=== PATIENT | female | born 1970 | race Caucasian/White ===

== ENCOUNTER 2024-08-15 00:09 | Inpatient (IN) ==
[2024-08-15 01:21] LABS: Appearance Urine Clear (Clear); Bacteria Urine Automated None Seen (None Seen); Bilirubin Urine 2+ (Negative); Blood Urine Negative (Negative); Cast Urine Automated 0-2 /lpf (0-2); Color Urine Dark Yellow; Glucose Urine UA Negative (Negative); Ketones Urine 4+ (Negative); Leukocyte Esterase Urine Negative (Negative); Nitrite Urine Negative (Negative); Protein Urine 1+ (Negative); RBC Urine Automated 0-2 /hpf (0-2); Specific Gravity Urine 1.029 (1.000-1.030); Urobilinogen Urine Negative (Negative); WBC Urine Automated 0-5 /hpf (0-5); pH Urine 5.5 (4.5-7.5)
[2024-08-15 01:22] LABS: Basophils # (auto) 0.05 K/uL (0.00-0.20); Basophils % (auto) 0.7 %; Eosinophils % (auto) 1.4 %; Hematocrit (blood only) 37.9 % (37.0-47.0); Immature Granulocytes # (auto) 0.02 K/uL (0.01-0.20); Immature Granulocytes % (auto) 0.3 %; Lymphocytes # (auto) 1.18 K/uL (1.20-3.40); Lymphocytes % (auto) 16.5 %; Mean Corpuscular Hemoglobin 36.8 pg (25.0-34.0); Mean Corpuscular Hgb Conc 36.9 g/dL (32.0-36.0); Mean Corpuscular Volume 99.7 fL (80.0-100.0); Mean Platelet Volume 9.5 fL (9.4-12.4); Monocytes # (auto) 0.95 K/uL (0.11-0.59); Monocytes % (auto) 13.3 %; Neutrophils # (auto) 4.83 K/uL (1.40-6.50); Neutrophils % (auto) 67.8 %; Platelet Count 207 K/uL (130-400); RDW Coefficient of Variation 12.5 % (11.5-14.5); RDW Standard Deviation 45.3 fL (36.4-46.3); White Blood Count 7.13 K/ul (4.8-10.8)
[2024-08-15 01:38] LABS: Albumin Globulin Ratio 1.4 (0.9-2); Albumin Level 4.8 gm/dl (3.4-5.0); BUN Creatinine Ratio 31.7 (10-20); Bilirubin,Total 1.8 mg/dl (0.2-1.0); Calcium 10.4 mg/dl (8.6-10.3); Creatinine Clr Calc Pharmacy 89.4 ml/min; Globulin 3.4 gm/dl (2.5-4.0); Potassium 2.7 mmol/L (3.5-5.1); Total Protein 8.2 gm/dl (6.0-8.3)
[2024-08-15 01:52] LABS: Thyroid Stimulating Hormone 6.086 uIu/ml (0.300-4.500)
[2024-08-15] MEDS: SODIUM CHLORIDE 0.9% 1,000 ML IV ONE (01:53)
[2024-08-15 01:54] LABS: Acetaminophen < 3 ug/ml (10-30); Amphetamines+Metham, Urine Neg (Neg); Barbiturates, Urine Neg (Neg); Benzodiazepine, Urine Pos (Neg); Cocaine, Urine Neg (Neg); Fentanyl, Urine Neg (Neg); MDMA (Ecstacy), Urine Neg (Neg); Marijuana, Urine Neg (Neg); Methadone, Urine Neg (Neg); Opiate, Urine Neg (Neg); Phencyclidine, Urine Neg (Neg); Salicylate < 3.0 mg/dl (3.0-30)
[2024-08-15] MEDS: POTASSIUM CHLORIDE / WTR 10 MEQ/100 ML PLCT IV SCH (02:04)
[2024-08-15 02:27] LABS: T4 Free Thyroxine 1.14 ng/dl (0.61-1.60)
[2024-08-15] MEDS: CEROVITE ADV FORMULA TAB PO STA (02:37)
--- NOTE | 2024-08-15 03:01 | Emergency Department Note ---
Impression & Plan Alcohol withdrawal syndrome with perceptual disturbance, Hypokalemia, Insomnia admit to the [facility] ED Provider Note NAME: RICA CARLTON AGE: 53 SEX: Female INFORMANT: Patient ED PROVIDER(S): Patrizia Santana DO CHIEF COMPLAINT: Hallucinations PLAN: Disposition: admit to the [facility] MEDICAL DECISION MAKING: this is a 53-year-old female who presents to the emergency department acutely hallucinating believing there were people in her home overnight that were having sex. She admits that she has baseline insomnia with only 15 to 20 hours of sleep per week and that over the past 1 week she has had even less sleep than that. She describes having a head injury approximately 6 weeks ago which led to a concussion. She had increased head pain 3 to 4 days ago for which she was seen in [place]'s emergency department where she underwent a CT scan of her head neck which was negative. after some time here in the emergency department, the patient was evaluated by the ED psychiatric rn case manager for acute psychosis and the patient's son explained that the patient abuses alcohol. A question the patient and her son again and it seems that she does drink alcohol on a daily basis and the son believes that she would withdraw from alcohol. He states that she drinks between 2-3 Fifths of RuM a week. her last alcohol Intakewas sometime yesterday. laboratory studies revealed an alcohol level of 0. There was no leukocytosis. H&H were stable. Sodium was slightly low at 132. Potassium was extremely low at 2.7. She did have an anion gap of 20. TSH was 6.0. Free T4 was 1.1. LFTs were elevated total bilirubin was 1.8. AST was 127. ALT was 123. Urine tox screen was positive for benzodiazepines. I think the patient's presentation may be a combination of things. Most importantly, she may be suffering from hallucinations secondary to alcohol withdrawal and insomnia. She was started on IV thiamine, IV folic acid, and IV potassium. She had 4+ ketones in her urine. She was started on IV normal saline solution. Patient will require close monitoring to ensure she does not suffer DTs. I discussed the case with the [facility] and they will evaluate for further inpatient care. Care/management discussed with: The patient's son, ED psychiatric director case, [place] Hospitalist Triage Nursing notes: reviewed and agree with them. Vital Signs: reviewed and unremarkable Additional History obtained from: the patient's son who is at the bedside Chronic Medical/Social Conditions affecting care: patient suffers from a cardiac condition which she has extra beats according to the patient and her son. She has been referred to [facility] for evaluation of this. Differential Diagnosis: Insomnia, thought disorder, alcohol withdrawal, Warnicke's encephalopathy, metabolic encephalopathy, hypokalemia, acute kidney injury Diagnostics, independently interpreted by me: Cardiac Monitoring: normal sinus rhythm at a rate of 97 HPI: 53 year old Female arrives for evaluation of hallucinations. presents to the emergency department acutely hallucinating believing there were people in her home overnight that were having sex. She admits that she has baseline insomnia with only 15 to 20 hours of sleep per week and that over the past 1 week she has had even less sleep than that. She describes having a head injury approximately 6 weeks ago which led to a concussion. She had increased head pain 3 to 4 days ago for which she was seen in [facility] emergency department where she underwent a CT scan of her head neck which was negative. 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 Pupils are equal, round, and reactive to light. Extraocular eye muscles are intact, and sclera are anicteric. Nose - moist nasal mucosa without discharge. Mouth - moist buccal mucosa. Oropharynx is nonerythematous and there is no tonsillar exudate or edema noted. Neck: Supple; no JVD, cervical lymphadenopathy or thyromegaly Heart: Regular rate and rhythm. There is a normal S1 and S2 with no murmurs, clicks, or gallops appreciated. Lungs: Clear to auscultation bilaterally with no wheezes, rales, or rhonchi. Abdomen: Soft, completely nontender, nondistended, with good bowel sounds. There are no palpable pulsatile masses or hepatosplenomegaly. There is no guarding, rigidity, or rebound noted. Extremities: No evidence of cyanosis, clubbing, or edema. There are easily palpable peripheral pulses. Skin: pale, warm and dry with good turgor and no rashes. Psych: The patient is actively hallucinating believing that her son is her ex- Emergency Department course: The patient was evaluated in room A-2. A complete history and physical was performed. An order was placed for continuous cardiac monitoring. The patient was in a normal sinus rhythm at a rate of 97. IV lock was initiated and labs are drawn as above. The patient was bolused with a liter of normal saline solution. She was started on IV K rider. She was then given an IV dose of thiamine and IV dose of folic acid. She was given an oral dose of multivitamin. I have personally spent greater than 60 minutes of critical care time in the direct management of this patient. This includes bedside care, interpretation of diagnostic studies, and testing, discussion with consultants, patient, and family members, and other required patient management activities. This 60 minutes is in excess of all separately billable procedures. Past Med/Surg History Problem List (Updated 08/15/24 @ 03:36 by Belkis Shaikh DO) Alcohol use Confusion Insomnia (Acute) Hypokalemia (Acute) Alcohol withdrawal syndrome with perceptual disturbance (Acute) Social History Smoking Status: Former smoker Preferred Language: Upper Sorbian Feels Safe at Home: Yes Allergies Allergies Allergy/AdvReac Type Severity Reaction Status Date / Time morphine Allergy Severe swelling Verified 08/15/24 01:44 Home Meds Home Medications Medication Instructions Recorded Confirmed cyanocobalamin (vitamin B-12) 1,000 mcg PO DAILY 08/15/24 08/15/24 1,000 mcg tablet (Vitamin B-12) folic acid 1 mg tablet 1 mg PO DAILY 08/15/24 08/15/24 multivitamin 1 tab PO DAILY 08/15/24 08/15/24 omega 5-saz-mnx-fish oil 1,000 mg 1 cap PO DAILY 08/15/24 08/15/24 (120 mg-180 mg) capsule (Fish Oil) thiamine HCl (vitamin B1) 100 mg 100 mg PO DAILY 08/15/24 08/15/24 tablet vitamin B6-vitamin E-magnesium 1 tab PO DAILY 10/30/24 10/30/24 tablet Results & Data (ED) Vital Signs Vital Signs - 24 hr 08/15/24 00:13 08/15/24 01:16 08/15/24 02:12 Temperature 36.9 C Temperature Source Temporal Artery Scan Pulse Rate 114 H 95 H Pulse Rate [Apical] 96 H Pulse Rhythm [Apical] Regular Pulse Strength [Apical] Normal Respiratory Rate 18 18 Respiratory Effort / Characteristics Non-Labored Spontaneous Respiratory Depth Normal Respiratory Pattern Regular Blood Pressure 163/85 H Blood Pressure [Right Arm] 123/85 Blood Pressure Mean 111 Blood Pressure Mean [Right Arm] 97 Blood Pressure Position [Right Arm] Semi-fowlers Pulse Oximetry 97 96 Oxygen Delivery Method Room Air Room Air Sepsis Recent Fever Within 48 Hours No Sepsis New/Unexplained Change in Mental Status No Sepsis Action Taken by Nursing No Action Required Laboratory Data 08/15/24 01:00 08/15/24 01:00 Lab Results 08/15/24 Range/Units 01:00 WBC 7.13 (4.8-10.8) K/ul RBC 3.80 L (4.20-5.40) M/uL Hgb 14.0 (12.0-16.0) g/dl Hct 37.9 (37.0-47.0) % MCV 99.7 (80.0-100.0) fL MCH 36.8 H (25.0-34.0) pg MCHC 36.9 H (32.0-36.0) g/dL RDW Std Deviation 45.3 (36.4-46.3) fL RDW Coeff of Karla 12.5 (11.5-14.5) % Plt Count 207 (130-400) K/uL MPV 9.5 (9.4-12.4) fL Immature Gran % (Auto) 0.3 % Neut % (Auto) 67.8 % Lymph % (Auto) 16.5 % [place] % (Auto) 13.3 % Eos % (Auto) 1.4 % Baso % (Auto) 0.7 % Neut # (Auto) 4.83 (1.40-6.50) K/uL Lymph # (Auto) 1.18 L (1.20-3.40) K/uL [place] # (Auto) 0.95 H (0.11-0.59) K/uL Eos # (Auto) 0.10 (0.00-0.50) K/uL Baso # (Auto) 0.05 (0.00-0.20) K/uL Immature Gran # (Auto) 0.02 (0.01-0.20) K/uL Sodium 132 L (136-145) mmol/L Potassium 2.7 L (3.5-5.1) mmol/L Chloride 91 L (98-107) mmol/L Carbon Dioxide 21 (21-32) mmol/L Anion Gap 20 H (3-11) BUN 20 (6-23) mg/dl Creatinine 0.63 (0.6-1.2) mg/dl Est Cr Clr Drug Dosing 89.4 ml/min eGFR 106.01 BUN/Creatinine Ratio 31.7 H (10-20) Glucose 92 (70-99(Fasting)) mg/dl Calcium 10.4 H (8.6-10.3) mg/dl Phosphorus 3.3 (2.5-4.9) mg/dl Magnesium 1.5 L (1.7-2.4) mg/dl Total Bilirubin 1.8 H (0.2-1.0) mg/dl AST 127 H (13-39) U/L ALT 123 H (7-52) U/L Alkaline Phosphatase 66 (34-104) U/L Total Protein 8.2 (6.0-8.3) gm/dl Albumin 4.8 (3.4-5.0) gm/dl Globulin 3.4 (2.5-4.0) gm/dl Albumin/Globulin Ratio 1.4 (0.9-2) TSH 6.086 H (0.300-4.500) uIu/ml Free T4 1.14 (0.61-1.60) ng/dl Urine Color Dark Yellow Urine Appearance Clear (Clear) Urine pH 5.5 (4.5-7.5) Ur Specific [place] 1.029 (1.000-1.030) Urine Protein 1+ H (Negative) Urine Glucose (UA) Negative (Negative) Urine Ketones 4+ H (Negative) Urine Blood Negative (Negative) Urine Nitrite Negative (Negative) Urine Bilirubin 2+ H (Negative) Urine Urobilinogen Negative (Negative) Ur Leukocyte Esterase Negative (Negative) Urine WBC (Auto) 0-5 (0-5) /hpf Urine RBC (Auto) 0-2 (0-2) /hpf U Hyaline Cast (Auto) 0-2 (0-2) /lpf U Epithel Cells (Auto) 3-5 H (0-2) /hpf Urine Bacteria (Auto) None Seen (None Seen) Salicylates < 3.0 L (3.0-30) mg/dl Urine Opiates Screen Neg (Neg) Ur Methadone, Qual Neg (Neg) Urine Fentanyl Screen Neg (Neg) Acetaminophen < 3 L (10-30) ug/ml Urine Barbiturates Neg (Neg) Ur Phencyclidine (PCP) Neg (Neg) U Amphetamin/Meth Scrn Neg (Neg) MDMA (Ecstasy) Screen Neg (Neg) U Benzodiazepines Scrn Pos H (Neg) Ur Cocaine Metabolite Neg (Neg) U Marijuana (THC) Screen Neg (Neg) Ethyl Alcohol mg/dL < 10.0 (<10.0) mg/dl Administered Medications Discontinued Medications Sodium Chloride (Nss) 1,000 mls @ 999 mls/hr IV .Q1H1M ONE Stop: 08/15/24 02:27 Last Infusion: 08/15/24 03:23 Dose: Infused Documented By: Admin: 08/15/24 01:53 Dose: 999 mls/hr Documented By: IDD Potassium Chloride (K Geovanni / Wtr) 10 meq in 100 mls @ 100 mls/hr IV Q1H KRISTINA Stop: 08/15/24 03:59 Last Infusion: 08/15/24 04:31 Dose: Infused Documented By: Admin: 08/15/24 03:26 Dose: 100 mls/hr Documented By: Infusion: 08/15/24 03:23 Dose: Infused Documented By: Admin: 08/15/24 02:04 Dose: 100 mls/hr Documented By: IDD Thiamine HCl 500 mg/ Sodium (Chloride) 55 mls @ 210 mls/hr IV NOW STA Stop: 08/15/24 02:35 Last Infusion: 08/15/24 03:47 Dose: Infused Documented By: Admin: 08/15/24 03:26 Dose: 210 mls/hr Documented By: IDD Folic Acid 1 mg/ Syringe 10 mls @ 5 mls/min IV NOW STA Stop: 08/15/24 02:22 Last Admin: 08/15/24 03:26 Dose: 5 mls/min Documented By: CYNTHIA Lorazepam (Lorazepam 2 Mg/1 Ml Vial) 3 mg IV ONCE PRN; Protocol PRN Reason: EtOH Withdrawal AWSS Score 10+ Last Admin: 08/15/24 04:30 Dose: 3 mg Documented By: CYNTHIA Multivitamins/Minerals (Cerovite Adv Formula Tab) 1 tab PO NOW STA Stop: 08/15/24 02:22 Last Admin: 08/15/24 02:37 Dose: 1 tab Documented By: CYNTHIA Discharge Plan Visit Data Chief Complaint: Head Injury, Minor Stated Complaint: HX OF HEAD INJURY AND CONCUSSION, HALLUCINATIONS ED Provider: Patrizia Santana Discharge Problem: Alcohol withdrawal syndrome with perceptual disturbance, Hypokalemia, Insomnia Discharge Instructions Interventions: ED Discharge Assessment Last Done: 08/15/24 04:06
--- NOTE | 2024-08-15 03:22 | History & Physical Report ---
Date of Service August 15, 2024 Assessment & Plan (1) Confusion: Plan: 53yo female presenting with episodes of confusion, possible hallucinations which have occurred over the last week. Etiology unclear at this time. Patient with history of ongoing heavy EtOH use - possibly as much as 20 drinks/day but does not drink every day. She has had withdrawal tremors before but denies DTs or seizures. Her son thinks possibly she has been drinking less over the last week. ?EtOH withdrawal syndrome contributing to patient's confusion and hallucinations. ?Wernicke/Korsakoff syndrome Patient also endorses insomnia - reports sleeping only 12-15 hours per week. This is likely contributing to patients confusion/encephalopathy. Recent head trauma reported - 6 weeks ago patient sustained a fall with head trauma, no LOC. Possible post-concussive syndrome ?Delirium as patient is increasingly distractible with waxing and waning mental state -Admit to medical with telemetry -Check B12, Folate levels -Check Mg and PO4 -Check Ammonia level -Repeat CT head without contrast given AMS and recent head trauma -Consider MRI as additional workup pending results of above -Will initiate treatment with high dose thiamine 500mg IV q 8 hours (2) Hypokalemia: Plan: K=2.7, suspect poor oral intake, nutritional deficiencies -Repletion - 80mEq PO ordered + 10mEq K rider -Repeat BMP today at 12:00 -Mg and PO4 pending - replete as needed (3) Insomnia: Plan: Patient reports poor sleep - sleeps only 12-15 hours/week. Likely contributing to patient's confusion -Encourage good sleep hygiene -Delirium prevention strategies (4) Alcohol use: Plan: Patient with heavy EtOH use. History of withdrawal tremors in the past. -AWSS with IV Ativan as needed -High dose Thiamine for now -Continue Folate po daily History of Present Illness Chief Complaint: confusion Primary Care Provider: NO PCP Edie is a 53yo female presenting with confusion. Patient sustained head trauma approximately 6 weeks ago - she got dizzy and fell and struck the left side of her head off a railing. She reports the area bled a lot. She did not seek medical attention at that time. Patient has had intermittent headaches since that time. On 08/10 patient was at work and developed a severe headache and tremors. She texted her son to come and get her. Her symptoms worsened and she was taken to [facility] where she had an unremarkable CT of the head and neck. Patient called her son at 03:00 later in the week and was upset that there was a democrat going on at her house. She called the police and told them that there were a lot of people in her home having sex. When the police arrived there was nobody there. Yesterday patient had an episode where she thought she was taking a picture of [id number] but, in fact, she was taking a picture of a pile of trashbags on the street. Her son took a video of this episode and shared it with me in the room. Son notes that her speech was a little slurred on Tuesday but has been normal since. No focal deficits Patient reports to being easily distracted Otherwise no complaints She does drink fairly heavily and has done so for years. Reports drinking a handle of liquor in two days (appx 40 drinks over two days -[employer]'s rum) Allergies Allergy/AdvReac Type Severity Reaction Status Date / Time morphine Allergy Severe swelling Verified 08/15/24 01:44 Home Medications Medication Instructions Recorded Confirmed Type cyanocobalamin (vitamin B-12) 1,000 mcg PO DAILY 08/15/24 08/15/24 History 1,000 mcg tablet (Vitamin B-12) folic acid 1 mg tablet 1 mg PO DAILY 08/15/24 08/15/24 History multivitamin 1 tab PO DAILY 08/15/24 08/15/24 History omega 6-dnv-ozr-fish oil 1,000 mg 1 cap PO DAILY 08/15/24 08/15/24 History (120 mg-180 mg) capsule (Fish Oil) thiamine HCl (vitamin B1) 100 mg 100 mg PO DAILY 08/15/24 08/15/24 History tablet vitamin B6-vitamin E-magnesium 1 tab PO DAILY 08/15/24 08/15/24 History tablet Past Med/Surg History Problem List (Updated 08/15/24 @ 03:36 by Belkis Shaikh DO) Alcohol use Confusion Insomnia (Acute) Hypokalemia (Acute) Alcohol withdrawal syndrome with perceptual disturbance (Acute) Social History Smoking Status: Former smoker Preferred Language: Yoruba Feels Safe at Home: Yes Review of Systems Review of Systems: All systems reviewed & are unremarkable except as noted in HPI & below Physical Exam Physical Exam: General: patient resting comfortably, NAD, non-toxic in appearance, AA&O x 4 Skin: warm, dry, intact, no rashes or lesions HEENT: NC/AT, PERRL, EOMI, anicteric sclera, conjunctiva without injection, external ear normal to inspection and nontender, nares patent, moist mucus membranes, dentition intact, no oropharyngeal lesions, neck supple, trachea midline, no LAD, no thyromegaly, no JVD Heart: +S1/S2, regular, no m/r/g Lungs: equal air entry bilaterally, no rales/rhonchi/wheezes Abd: +BS, soft, NT/ND, no masses/organomegaly/ascites Ext: warm, 2+ pulses in UE/LE bilaterally, no clubbing/cyanosis or edema Neuro: nonfocal, patient AA&O x 4, speech intact, no facial droop, moving all extremities on command with equal strength 5/5 Results & Data Results & Data Vital Signs (Past 12 Hours) Vital Signs Temp Pulse Pulse Resp BP BP Pulse Ox 08/15/24 02:12 96 H 18 123/85 96 08/15/24 01:16 95 H 08/15/24 00:13 36.9 C 114 H 18 163/85 H 97 O2 Del Method 08/15/24 02:12 Room Air 08/15/24 01:16 08/15/24 00:13 Room Air Laboratory Results Laboratory Results WBC 7.13 K/ul (4.8-10.8) 08/15/24 01:00 RBC 3.80 M/uL (4.20-5.40) L 08/15/24 01:00 Hgb 14.0 g/dl (12.0-16.0) 08/15/24 01:00 Hct 37.9 % (37.0-47.0) 08/15/24 01:00 MCV 99.7 fL (80.0-100.0) 08/15/24 01:00 MCH 36.8 pg (25.0-34.0) H 08/15/24 01:00 MCHC 36.9 g/dL (32.0-36.0) H 08/15/24 01:00 RDW Std Deviation 45.3 fL (36.4-46.3) 08/15/24 01:00 RDW Coeff of Karla 12.5 % (11.5-14.5) 08/15/24 01:00 Plt Count 207 K/uL (130-400) 08/15/24 01:00 MPV 9.5 fL (9.4-12.4) 08/15/24 01:00 Immature Gran % (Auto) 0.3 % 08/15/24 01:00 Neut % (Auto) 67.8 % 08/15/24 01:00 Lymph % (Auto) 16.5 % 08/15/24 01:00 [place] % (Auto) 13.3 % 08/15/24 01:00 Eos % (Auto) 1.4 % 08/15/24 01:00 Baso % (Auto) 0.7 % 08/15/24 01:00 Neut # (Auto) 4.83 K/uL (1.40-6.50) 08/15/24 01:00 Lymph # (Auto) 1.18 K/uL (1.20-3.40) L 08/15/24 01:00 [place] # (Auto) 0.95 K/uL (0.11-0.59) H 08/15/24 01:00 Eos # (Auto) 0.10 K/uL (0.00-0.50) 08/15/24 01:00 Baso # (Auto) 0.05 K/uL (0.00-0.20) 08/15/24 01:00 Immature Gran # (Auto) 0.02 K/uL (0.01-0.20) 08/15/24 01:00 Sodium 132 mmol/L (136-145) L 08/15/24 01:00 Potassium 2.7 mmol/L (3.5-5.1) L 08/15/24 01:00 Chloride 91 mmol/L (98-107) L 08/15/24 01:00 Carbon Dioxide 21 mmol/L (21-32) 08/15/24 01:00 Anion Gap 20 (3-11) H 08/15/24 01:00 BUN 20 mg/dl (6-23) 08/15/24 01:00 Creatinine 0.63 mg/dl (0.6-1.2) 08/15/24 01:00 Est Cr Clr Drug Dosing 89.4 ml/min 08/15/24 01:00 eGFR 106.01 08/15/24 01:00 BUN/Creatinine Ratio 31.7 (10-20) H 08/15/24 01:00 Glucose 92 mg/dl (70-99(Fasting)) 08/15/24 01:00 Calcium 10.4 mg/dl (8.6-10.3) H 08/15/24 01:00 Total Bilirubin 1.8 mg/dl (0.2-1.0) H 08/15/24 01:00 AST 127 U/L (13-39) H 08/15/24 01:00 ALT 123 U/L (7-52) H 08/15/24 01:00 Alkaline Phosphatase 66 U/L (34-104) 08/15/24 01:00 Total Protein 8.2 gm/dl (6.0-8.3) 08/15/24 01:00 Albumin 4.8 gm/dl (3.4-5.0) 08/15/24 01:00 Globulin 3.4 gm/dl (2.5-4.0) 08/15/24 01:00 Albumin/Globulin Ratio 1.4 (0.9-2) 08/15/24 01:00 TSH 6.086 uIu/ml (0.300-4.500) H 08/15/24 01:00 Free T4 1.14 ng/dl (0.61-1.60) 08/15/24 01:00 Urine Color Dark Yellow 08/15/24 01:00 Urine Appearance Clear (Clear) 08/15/24 01:00 Urine pH 5.5 (4.5-7.5) 08/15/24 01:00 Ur Specific [place] 1.029 (1.000-1.030) 08/15/24 01:00 Urine Protein 1+ (Negative) H 08/15/24 01:00 Urine Glucose (UA) Negative (Negative) 08/15/24 01:00 Urine Ketones 4+ (Negative) H 08/15/24 01:00 Urine Blood Negative (Negative) 08/15/24 01:00 Urine Nitrite Negative (Negative) 08/15/24 01:00 Urine Bilirubin 2+ (Negative) H 08/15/24 01:00 Urine Urobilinogen Negative (Negative) 08/15/24 01:00 Ur Leukocyte Esterase Negative (Negative) 08/15/24 01:00 Urine WBC (Auto) 0-5 /hpf (0-5) 08/15/24 01:00 Urine RBC (Auto) 0-2 /hpf (0-2) 08/15/24 01:00 U Hyaline Cast (Auto) 0-2 /lpf (0-2) 08/15/24 01:00 U Epithel Cells (Auto) 3-5 /hpf (0-2) H 08/15/24 01:00 Urine Bacteria (Auto) None Seen (None Seen) 08/15/24 01:00 Salicylates < 3.0 mg/dl (3.0-30) L 08/15/24 01:00 Urine Opiates Screen Neg (Neg) 08/15/24 01:00 Ur Methadone, Qual Neg (Neg) 08/15/24 01:00 Urine Fentanyl Screen Neg (Neg) 08/15/24 01:00 Acetaminophen < 3 ug/ml (10-30) L 08/15/24 01:00 Urine Barbiturates Neg (Neg) 08/15/24 01:00 Ur Phencyclidine (PCP) Neg (Neg) 08/15/24 01:00 U Amphetamin/Meth Scrn Neg (Neg) 08/15/24 01:00 MDMA (Ecstasy) Screen Neg (Neg) 08/15/24 01:00 U Benzodiazepines Scrn Pos (Neg) H 08/15/24 01:00 Ur Cocaine Metabolite Neg (Neg) 08/15/24 01:00 U Marijuana (THC) Screen Neg (Neg) 08/15/24 01:00 Ethyl Alcohol mg/dL < 10.0 mg/dl (<10.0) 08/15/24 01:00 PG Care Time/CCT Total # of Minutes Spent Total Time Spent with Patient: Total time spent is greater than 50% in coordination of care (as documented) at patient's floor/unit and/or counseling patient: Coding Level of Care Code 82960 INT INP/OBS CARE 3/75MIN Diagnoses Confusion R41.0 Hypokalemia E87.6 Insomnia G47.00 Alcohol use Z78.9
[2024-08-15] MEDS: FOLIC ACID 1 MG in SYRINGE 9.8 ML IV STA (03:26)
[2024-08-15] MEDS: THIAMINE HCL 500 MG in SODIUM CHLORIDE 0.9% 50 ML IV STA (03:26)
[2024-08-15 03:46] LABS: Magnesium 1.5 mg/dl (1.7-2.4); Phosphorus 3.3 mg/dl (2.5-4.9)
[2024-08-15] MEDS ORDERED: LORazepam 2 MG/1 ML VIAL IV PRN ×2 (04:06)
[2024-08-15] MEDS ORDERED: Ativan IV Alcohol Withdrawal--Active Protocol IV PRN (04:06)
[2024-08-15] MEDS ORDERED: POTASSIUM CHLORIDE CRTAB 20 MEQ TABCR PO STA (04:06)
[2024-08-15] MEDS ORDERED: ACETAMINOPHEN 325 MG TAB PO PRN (04:06)
[2024-08-15] MEDS ORDERED: ONDANSETRON INJ 2 MG/ML 2 ML VIAL IV PRN (04:06)
[2024-08-15] MEDS: LORazepam 2 MG/1 ML VIAL IV PRN (04:30)
[2024-08-15] MEDS ORDERED: Nursing to Pharmacy Communication SCH (05:45)
[2024-08-15] MEDS: diazePAM 5 MG TABLET PO ONE (06:15)
[2024-08-15 06:47] LABS: Folate (Folic Acid),Ser orPlas 18.08 ng/ml (>5.38)
[2024-08-15] MEDS: MAGNESIUM SULFATE / D5W 1 GM/100 ML BAG IV SCH ×2 (07:31→11:16)
--- NOTE | 2024-08-15 07:57 | Hospitalist Progress Note ---
Date of Service August 15, 2024 Assessment & Plan (1) Confusion: Plan: 53yo female presenting with episodes of confusion, possible hallucinations which have occurred over the last week. Etiology unclear at this time. Patient with history of ongoing heavy EtOH use ?EtOH withdrawal syndrome contributing to patient's confusion and hallucinations. ?Wernicke/Korsakoff syndrome Patient also endorses insomnia - reports sleeping only 12-15 hours per week. This is likely contributing to patients confusion/encephalopathy. Recent head trauma reported - 6 weeks ago patient sustained a fall with head trauma, no LOC. Possible post-concussive syndrome Will perform extensive laboratory workup including: CBC, CMP, Mag, Phos, B12, Folate, RPR, CRP, Hep C, Tickborne panel Ammonia level normal CT head without acute pathology Delirium as patient is increasingly distractible with waxing and waning mental state Continue treatment with high dose thiamine 500mg IV q 8 hours (2) Hypokalemia: Plan: serial labs and repletion as indicated (3) Insomnia: Plan: Patient reports poor sleep - sleeps only 12-15 hours/week. Likely contributing to patient's confusion -Encourage good sleep hygiene -Delirium prevention strategies (4) Alcohol use: Plan: Patient with heavy EtOH use. History of withdrawal tremors in the past. -AWSS with IV Ativan as needed -High dose Thiamine for now -Continue Folate po daily Admission and Anticipated Discharge Date Admission Date: August 15, 2024 Supervising Physician Co-Signing Physician Notes I personally examined the patient and verified castro points of history and exam, discussed case, and agree with decision making and plan documented by Dr. Mahoney. 53-year-old female with a history of alcohol use disorder on admission for acute episode of hallucinations and delusions. Patient's son Georges was present and supported history. Patient states that she awoke to perception that there were multiple men having an orgy in her house, she asked them to leave and was frustrated that they did not. In addition, patient's son notes that she was interacting with trash bags in her front yard that she perceived were trigger treaters. During conversation, patient noted that she was hospitalized at [facility] and that she just delivered a baby. She also was concerned about staff spraying the quintero with cold spray that was "pissing her off". From report, patient has a longstanding history of alcohol abuse, for which she does not think is a problem at present, did reveal a strong family history for alcoholism. Patient's son reports that there have been changes at her job that have been increasing her stress, reportedly patient sleeps approximately 10 to 15 hours/week. Unclear etiology for the cause of acute encephalopathy. Broad differential including infection, intoxication, mental health exacerbation, metabolic derangement. Head CT was performed and revealed no acute changes, patient did have a fall approximately 6 weeks prior, she denied additional falls. Urine tox positive for benzodiazepine, reflex confirmation testing pending. At present, do not believe patient has capacity. Agree with psychiatric evaluation. Subjective Patient seen and evaluated at bedside this morning. No acute events overnight. Admitted for altered mental status/hallucinations in setting of heavy EtOH use and fall with headstrike 6 weeks ago for which she did not seek medical attention. EtOH negative on admission, benzo +. Pt does have transaminitis not consistent with EtOH. During interaction, patient endorses long standing EtOH use. Describes visual and auditory hallucinations including an orgy in her house. When asked where she was she was able to state where, when asked why she stated because she had just given . She also, in the room stated that the nurse was spraying the quintero with water. Endorses spending time outside while chopping wood. Denies prior psychiatric illness. Review of Systems Review of Systems: reviewed, per HPI Physical Exam Physical Exam: Constitutional: somnolent but conversational, AOx1 HEENT: NCAT, no conjunctival injection CV: regular rhythm, no murmur appreciated, extremities well-perfused, no LE edema Resp: CTABL, no wheezes/rales/rhonchi appreciated, no increased work of breathing GI: soft, nondistended, nontender, BS normoactive MSK: no gross deformities appreciated Skin: warm, dry, no rash appreciated Neuro: somnolent, AOx1, no obvious focal deficits, no asterixis Results & Data Results & Data Vital Signs (Past 12 Hours) Vital Signs Temp Pulse Pulse Resp BP BP Pulse Ox 08/15/24 06:56 86 08/15/24 06:30 93 H 18 103/60 94 08/15/24 05:03 97 H 18 107/60 96 08/15/24 04:00 97 H 18 111/70 96 08/15/24 02:12 96 H 18 123/85 96 08/15/24 01:16 95 H 10/30/24 00:13 36.9 C 114 H 18 163/85 H 97 O2 Del Method 08/15/24 06:56 08/15/24 06:30 Room Air 08/15/24 05:03 Room Air 08/15/24 04:00 Room Air 08/15/24 02:12 Room Air 08/15/24 01:16 08/15/24 00:13 Room Air Resident Activity Tracking Resident Involvement: Resident Care Provided Care Provided: Adult Hospital Medicine
--- NOTE | 2024-08-15 08:37 | CT Scan Report ---
CT SCAN OF THE BRAIN WITHOUT IV CONTRAST CLINICAL HISTORY: Change in mental status. Recent head injury. COMPARISON STUDY: No priors. TECHNIQUE: Unenhanced axial CT scan of the brain is performed from the vertex to the skull base. A d ose lowering technique was utilized adhering to the principles of ALARA. CT DOSE: 547.75 mGy.cm FINDINGS: Brain parenchyma: The brain parenchyma is normal in appearance. There is no hemorrhage, mass effect, or evidence of acute territorial ischemia by CT criteria. Thibodeaux-white matter differentiation is preser hayley. No extra-axial fluid collection is seen. Ventricles, sulci, cisterns: Normal in configuration. Intracranial vasculature: The visualized intracranial vasculature at the skull base is normal in appe arance. Calvarium: Unremarkable. Sinuses and mastoids: The visualized paranasal sinuses are clear. The mastoid air cells are well pneu matized. Orbits: The bony orbits are grossly intact. IMPRESSION: No acute intracranial abnormality. ACT 112: Negative or not required by law. Electronically signed by: Marcus Valencia M.D. 08/15/2024 8:36 AM
[2024-08-15] MEDS ORDERED: THIAMINE HCL 100 MG TAB PO SCH (09:00)
[2024-08-15] MEDS: POTASSIUM CHLORIDE CRTAB 20 MEQ TABCR PO SCH (09:01)
[2024-08-15] MEDS: FOLIC ACID 1 MG TAB PO SCH (09:02)
[2024-08-15 12:32] LABS: BUN Creatinine Ratio 16.9 (10-20); Calcium 9.2 mg/dl (8.6-10.3); Creatinine Clr Calc Pharmacy 95.4 ml/min; Potassium 2.9 mmol/L (3.5-5.1)
[2024-08-15] MEDS: THIAMINE HCL 500 MG in SODIUM CHLORIDE 0.9% 50 ML IV SCH (12:52)
[2024-08-15 16:34] LABS: Basophils # (auto) 0.06 K/uL (0.00-0.20); Eosinophils # (auto) 0.19 K/uL (0.00-0.50); Eosinophils % (auto) 3.1 %; Hematocrit (blood only) 40.4 % (37.0-47.0); Hemoglobin 14.7 g/dl (12.0-16.0); Immature Granulocytes # (auto) 0.02 K/uL (0.01-0.20); Immature Granulocytes % (auto) 0.3 %; Lymphocytes # (auto) 1.53 K/uL (1.20-3.40); Lymphocytes % (auto) 24.8 %; Mean Corpuscular Hemoglobin 36.8 pg (25.0-34.0); Mean Corpuscular Hgb Conc 36.4 g/dL (32.0-36.0); Mean Platelet Volume 9.4 fL (9.4-12.4); Monocytes # (auto) 0.68 K/uL (0.11-0.59); Neutrophils # (auto) 3.69 K/uL (1.40-6.50); Neutrophils % (auto) 59.8 %; Platelet Count 250 K/uL (130-400); RDW Coefficient of Variation 12.6 % (11.5-14.5); White Blood Count 6.17 K/ul (4.8-10.8)
[2024-08-15 16:59] LABS: Albumin Globulin Ratio 1.3 (0.9-2); Albumin Level 4.4 gm/dl (3.4-5.0); BUN Creatinine Ratio 15.3 (10-20); Bilirubin,Total 1.5 mg/dl (0.2-1.0); C Reactive Protein 2.85 mg/dl (0-0.5); Calcium 9.6 mg/dl (8.6-10.3); Creatinine Clr Calc Pharmacy 95.4 ml/min; Globulin 3.3 gm/dl (2.5-4.0); Magnesium 2.2 mg/dl (1.7-2.4); Phosphorus 2.3 mg/dl (2.5-4.9); Potassium 3.4 mmol/L (3.5-5.1); Total Protein 7.7 gm/dl (6.0-8.3)
[2024-08-15 17:21] LABS: Treponema pallidum RflxConfirm Negative (Negative)
[2024-08-15 17:25] LABS: Hep C Ab Rflx HepCQuant RNA Negative (Negative)
[2024-08-15] MEDS: POTASSIUM CHLORIDE CRTAB 20 MEQ TABCR PO STA (18:36)
[2024-08-16 06:49] LABS: Hematocrit (blood only) 36.2 % (37.0-47.0); Hemoglobin 13.1 g/dl (12.0-16.0); Mean Corpuscular Hgb Conc 36.2 g/dL (32.0-36.0); Mean Corpuscular Volume 102.3 fL (80.0-100.0); Mean Platelet Volume 9.6 fL (9.4-12.4); Platelet Count 187 K/uL (130-400); RDW Coefficient of Variation 12.5 % (11.5-14.5); RDW Standard Deviation 46.5 fL (36.4-46.3); Red Blood Count 3.54 M/uL (4.20-5.40); White Blood Count 4.33 K/ul (4.8-10.8)
[2024-08-16 07:15] LABS: Albumin Level 3.7 gm/dl (3.4-5.0); BUN Creatinine Ratio 17.6 (10-20); Bilirubin Direct 0.4 mg/dl (0-0.2); Bilirubin,Total 1.2 mg/dl (0.2-1.0); Calcium 8.8 mg/dl (8.6-10.3); Creatinine Clr Calc Pharmacy 112.1 ml/min; Potassium 3.7 mmol/L (3.5-5.1); Total Protein 6.5 gm/dl (6.0-8.3)
--- NOTE | 2024-08-16 15:33 | Hospitalist Progress Note ---
Date of Service August 16, 2024 Assessment & Plan (1) Alcohol withdrawal hallucinosis: Plan: Now seems to be clinically resolving Patient AAOx3 Continue B12, folate supplementation Continue AWSS protocol for any recurrence or evidence of acute withdrawal Contiinue to monitor, may be appropriate for dc tomorrow (2) Alcohol use disorder: Plan: Patient admits to EtOH use disorder Plan for AA after discharge Will start PO naltrexone tomorrow Will provide resources in her hometown area Important for patient to have good PCP follow up after dc (3) Insomnia: Plan: Patient reports poor sleep - sleeps only 12-15 hours/week. -Encourage good sleep hygiene -Delirium prevention strategies (4) Confusion: Plan: Induced by alcohol withdrawl Now resolved (5) Hypokalemia: Plan: Improved following repletion (6) Alcohol use: Plan: Patient with heavy EtOH use. History of withdrawal tremors in the past. Admission and Anticipated Discharge Date Admission Date: August 15, 2024 Supervising Physician Co-Signing Physician Notes I personally examined the patient and verified castro points of history and exam, discussed case, and agree with decision making and plan documented by Dr. Mahoney. 53-year-old female with a history of alcohol use disorder on admission for acute episode of hallucinations and delusions consistent with alcoholic hallucinosis. This has not occurred before. Patient endorses a strong family history of alcohol use, she reports near daily varied use with difficulty abstaining. Patient is scared and motivated to abstain from alcohol. We discussed the importance of connecting with a counselor, it patient lives in [place], consideration can be made for [facility] or [facility]. We also reviewed community connection with groups such as AA, patient is familiar with [facility]. Further, patient would benefit from trauma informed care and working with psychologist. We discussed starting naltrexone therapy, patient is in agreement. Will continue to monitor on CIWA, patient has had consistently low scores, there are as needed benzodiazepine ordered. Encouraged patient to establish with a PCP as well. Patient and her son Georges are understanding. Subjective Patient seen and evaluated at bedside this morning. No acute events overnight. Patient seated on edge of bed eating breakfast during encounter. Fully conversational and appropriate this morning. She is able to recount the events of the last 24-48hrs including her delusions/hallucination episodes. She does admit that she believes that her job stress, sleep deprivation, and EtOH use are likely large contributors to the acute events. Review of Systems Review of Systems: reviewed, per HPI Physical Exam Physical Exam: Constitutional: Pleasant, NAD, AAOx3 HEENT: NCAT, no conjunctival injection CV: regular rhythm, no murmur appreciated, extremities well-perfused, no LE edema Resp: CTABL, no wheezes/rales/rhonchi appreciated, no increased work of breathing GI: soft, nondistended, nontender, BS normoactive MSK: no gross deformities appreciated Skin: warm, dry, no rash appreciated Neuro: no focal neurological deficits Results & Data Results & Data Vital Signs (Past 12 Hours) Vital Signs Temp Pulse Pulse Resp BP Pulse Ox O2 Del Method 08/16/24 14:04 110 H 08/16/24 11:48 37.3 C 88 20 108/69 94 Room Air 08/16/24 08:07 36.6 C 85 20 114/79 97 Room Air 08/16/24 05:43 101 H 08/16/24 03:44 37.1 C 74 18 115/79 95 Room Air Resident Activity Tracking Resident Involvement: Resident Care Provided Care Provided: Adult Hospital Medicine
--- NOTE | 2024-08-16 16:20 | Psychiatric Consultation ---
Date of Consultation August 16, 2024 Impression / Recommendations Impression Diagnostically consistent with alcohol-withdrawal delirium. Appears delirium is continuing to improve, no evidence of confusion of hallucinations on exam today. She is motivated to avoid alcohol use, consider use of MAT such as naltrexone if AA doesn't offer enough support. If anxiety or depression emerges in the future consider SSRI trial. Overall, I spent a total of 45 minutes with this case including review of chart records, review of labwork, direct evaluation of the patient at bedside, counseling the patient, discussion of the patient with the Nurse and with the hospitalist provider, discussion with the psychiatric liason during clinical rounds, review of collateral historian information from the family (see psych liason note for further details) and documentation in the electronic health re cord. (1) Alcohol use disorder: (2) Alcohol withdrawal hallucinosis: Plan -Consider naltrexone -Agree with AA involvement -Option for SSRI in the future if concerns for depression and anxiety emerge in absence of alcohol use Psych History Identifying Data 53 yo wm with hx of alcohol use and recent head injury/possible TBI admitted medically for confusion and hallucinations in the context of alcohol discontinuation. Psychiatry consulted for recommendations for hallucinations. Chief Complaint "I feel 80% better". History of Present Illness Edie presented with about a week of confusion and hallucinations including believing men were coming into her bedroom causing her to call police. She had been drinking 3-9 drinks every evening (soda with rum) over recent years but since a head injury about 6 weeks had been reducing her use. No overnight events. Today she reports feeling significantly better "80%" and reflects on how bizarre it felt to think there were men in her home. Describes how she wasn't aware of risks of stopping alcohol and while she's gone months without drinking in the past this experience has made her want to stop completely. She's planning to attend AA, discussed option for naltrexone in the future. Allergies Allergy/AdvReac Type Severity Reaction Status Date / Time morphine Allergy Severe swelling Verified 08/15/24 01:44 Home Medications Medication Instructions Recorded Confirmed Type cyanocobalamin (vitamin B-12) 1,000 mcg PO DAILY 08/15/24 08/15/24 History 1,000 mcg tablet (Vitamin B-12) folic acid 1 mg tablet 1 mg PO DAILY 08/15/24 08/15/24 History multivitamin 1 tab PO DAILY 08/15/24 08/15/24 History omega 0-ydh-ycc-fish oil 1,000 mg 1 cap PO DAILY 08/15/24 08/15/24 History (120 mg-180 mg) capsule (Fish Oil) thiamine HCl (vitamin B1) 100 mg 100 mg PO DAILY 08/15/24 08/15/24 History tablet vitamin B6-vitamin E-magnesium 1 tab PO DAILY 08/15/24 08/15/24 History tablet Patient History Social History Smoking Status: Unknown if ever smoked Hx Alcohol Use: Yes Alcohol type: wine and hard liquor Hx Substance Use: No Preferred Language: Thai Communication Ability: Effective Hand Sizer Required: No Beliefs That Will Affect Care: None Current Living Situation: Family Other Information That Helps Us Care for You: No Feels Safe at Home: Yes Safety Concerns: Feels Safe At This Time Assistive Devices: None Physical Exam Psychiatric: Orientation: alert and oriented x 3 Apperance: appropriately dressed and appropriately groomed Eye Contact: good eye contact Motor Behavior: no abnormal motor movements Speech: normal rate/rhythm/volume of speech Affect: euthymic affect Mood: no depressed mood and no anxious mood Thought Process: linear/logical thought process Thought Content: reality b ased without delusions Suicidal Thoughts: denies suicidal thoughts Homicidal Thoughts: denies homicidal thoughts Hallucinations: no auditory hallucinations and no visual hallucinations Cognition: recent memory grossly intact, remote memory grossly intact, attention grossly intact and language grossly intact Estimated Intelligence: consistent with education level Insight: + fair insight Judgment: + fair judgement Vital Signs (Past 24 Hours): Last Vital Signs Temp 36.5 C 08/16/24 15:29 Pulse 92 H 08/16/24 15:29 Resp 20 08/16/24 15:29 BP 129/86 08/16/24 15:29 Pulse Ox 95 08/16/24 15:29 O2 Del Method Room Air 08/16/24 15:29 Results & Data (PSY) Medications Administered Folic Acid (Folic Acid 1 Mg Tab) 1 mg PO DAILY KRISTINA Stop: 09/14/24 08:59 Last Admin: 08/16/24 10:31 Dose: 1 mg Documented By: Admin: 08/15/24 09:02 Dose: 1 mg Documented By: BECKA Thiamine HCl 500 mg/ Sodium (Chloride) 55 mls @ 110 mls/hr IV Q8H KRISTINA Stop: 09/14/24 11:59 Last Infusion: 08/16/24 12:13 Dose: Infused Documented By: Infusion: 08/16/24 12:13 Dose: 0 mls/hr Documented By: Admin: 08/16/24 11:44 Dose: 110 mls/hr Documented By: Infusion: 08/16/24 06:16 Dose: Infused Documented By: Admin: 08/16/24 06:01 Dose: 110 mls/hr Documented By: Infusion: 08/15/24 21:41 Dose: Infused Documented By: Admin: 08/15/24 21:02 Dose: 110 mls/hr Documented By: Infusion: 08/15/24 13:28 Dose: Infused Documented By: Admin: 08/15/24 12:52 Dose: 110 mls/hr Documented By: BECKA Coding Level of Care Code 88864 IN/OBS CONSULT LVL 3,45M Diagnoses Alcohol use disorder F10.90 Alcohol withdrawal hallucinosis F10.932
[2024-08-17 03:58] VITALS: O2SAT 96
[2024-08-17 06:43] LABS: Basophils # (auto) 0.07 K/uL (0.00-0.20); Basophils % (auto) 1.5 %; Eosinophils # (auto) 0.18 K/uL (0.00-0.50); Eosinophils % (auto) 3.8 %; Hematocrit (blood only) 36.4 % (37.0-47.0); Hemoglobin 13.3 g/dl (12.0-16.0); Immature Granulocytes # (auto) 0.02 K/uL (0.01-0.20); Immature Granulocytes % (auto) 0.4 %; Mean Corpuscular Hemoglobin 36.9 pg (25.0-34.0); Mean Corpuscular Hgb Conc 36.5 g/dL (32.0-36.0); Mean Corpuscular Volume 101.1 fL (80.0-100.0); Mean Platelet Volume 9.6 fL (9.4-12.4); Monocytes # (auto) 0.79 K/uL (0.11-0.59); Monocytes % (auto) 16.6 %; Neutrophils # (auto) 2.71 K/uL (1.40-6.50); Neutrophils % (auto) 56.7 %; Platelet Count 221 K/uL (130-400); RDW Coefficient of Variation 12.2 % (11.5-14.5); RDW Standard Deviation 46.1 fL (36.4-46.3); White Blood Count 4.77 K/ul (4.8-10.8)
[2024-08-17 07:14] LABS: Albumin Globulin Ratio 1.3 (0.9-2); Albumin Level 3.9 gm/dl (3.4-5.0); Calcium 9.2 mg/dl (8.6-10.3); Creatinine Clr Calc Pharmacy 106.2 ml/min; Globulin 2.9 gm/dl (2.5-4.0); Potassium 3.6 mmol/L (3.5-5.1); Total Protein 6.8 gm/dl (6.0-8.3)
[2024-08-17] MEDS: NALTREXONE HCL 50 MG TAB PO SCH (07:59)
[2024-08-17 08:26] VITALS: RESP 16
[2024-08-17 11:32] LABS: 7-Aminoclonaz, Confirm NEGATIVE ng/mL (<25); Hydro-Alp Ur, GC/MS 73 ng/mL (<25); Hydroxyethylflurazepam, Conf NEGATIVE ng/mL (<50); Hydroxymidazolam Ur, GC/MS NEGATIVE ng/mL (<50); Hydroxytriazolam NEGATIVE ng/mL (<50); Lorazepam, Ur GC/MS NEGATIVE ng/mL (<50); Nordiazepam, Confirm NEGATIVE ng/mL (<50); Oxazepam Ur, GC/MS NEGATIVE ng/mL (<50); Temazepam, Confirm NEGATIVE ng/mL (<50)
[2024-08-17 11:57] VITALS: BP 112/78; PULSE 75; TEMP 98.2
--- NOTE | 2024-08-17 14:11 | Discharge Summary ---
Date of Service August 17, 2024 Admission HPI Per Admitting Provider Edie is a 53yo female presenting with confusion. Patient sustained head trauma approximately 6 weeks ago - she got dizzy and fell and struck the left side of her head off a railing. She reports the area bled a lot. She did not seek medical attention at that time. Patient has had intermittent headaches since that time. On 08/10 patient was at work and developed a severe headache and tremors. She texted her son to come and get her. Her symptoms worsened and she was taken to [facility] where she had an unremarkable CT of the head and neck. Patient called her son at 03:00 later in the week and was upset that there was a green party going on at her house. She called the police and told them that there were a lot of people in her home having sex. When the police arrived there was nobody there. Yesterday patient had an episode where she thought she was taking a picture of [id number] but, in fact, she was taking a picture of a pile of trashbags on the street. Her son took a video of this episode and shared it with me in the room. Son notes that her speech was a little slurred on Tuesday but has been normal since. No focal deficits Patient reports to being easily distracted Otherwise no complaints She does drink fairly heavily and has done so for years. Reports drinking a handle of liquor in two days (appx 40 drinks over two days -Captain Abner amos) Admission Exam Per Admitting Provider General: patient resting comfortably, NAD, non-toxic in appearance, AA&O x 4 Skin: warm, dry, intact, no rashes or lesions HEENT: NC/AT, PERRL, EOMI, anicteric sclera, conjunctiva without injection, external ear normal to inspection and nontender, nares patent, moist mucus membranes, dentition intact, no oropharyngeal lesions, neck supple, trachea midline, no LAD, no thyromegaly, no JVD Heart: +S1/S2, regular, no m/r/g Lungs: equal air entry bilaterally, no rales/rhonchi/wheezes Abd: +BS, soft, NT/ND, no masses/organomegaly/ascites Ext: warm, 2+ pulses in UE/LE bilaterally, no clubbing/cyanosis or edema Neuro: nonfocal, patient AA&O x 4, speech intact, no facial droop, moving all extremities on command with equal strength 5/5 Principal Diagnosis Alcohol withdrawal hallucinosis Discharge Exam Constitutional: Pleasant, NAD, AAOx3 HEENT: NCAT, no conjunctival injection CV: regular rhythm, no murmur appreciated, extremities well-perfused, no LE edema Resp: CTABL, no wheezes/rales/rhonchi appreciated, no increased work of breathing GI: soft, nondistended, nontender, BS normoactive MSK: no gross deformities appreciated Skin: warm, dry, no rash appreciated Neuro: no focal neurological deficits Discharge Data Allergies Allergy/AdvReac Type Severity Reaction Status Date / Time morphine Allergy Severe swelling Verified 08/15/24 01:44 Consultations 08/15/24 02:22 ED Decision to Admit Stat 08/15/24 11:55 Consult Psychiatry Routine Ordered Studies 08/15/24 07:40 CT head/brain wo con Routine Hospital Course (1) Alcohol withdrawal hallucinosis: Resolved at discharge Patient AAOx3 Continue AWSS protocol for any recurrence or evidence of acute withdrawal (2) Alcohol use disorder: Patient admits to EtOH use disorder Plan for AA after discharge Will be discharged with 30 day supply of naltrexone Has good support system Will establish new PCP with [facility] (3) Insomnia: Patient reports poor sleep - sleeps only 12-15 hours/week. -Improved throughout stay -Encourage good sleep hygiene -Delirium prevention strategies (4) Confusion: Induced by alcohol withdrawl Now resolved (5) Hypokalemia: Improved following repletion (6) Alcohol use: Patient with heavy EtOH use. History of withdrawal tremors in the past. Total Time Total Time Spent Total Time Spent (In Minutes): see attending documentation Discharge Plan Discharge Items Patient Disposition: Home - Self-Care Reason For Visit: CONFUSION Discharge Diagnosis: Alcohol withdrawal hallucinosis Activity: Resume your previous activity Activity Comment: as tolerated Non-emergency contact: Primary Care Provider Call non-emergency contact if: you have any medication questions Follow-up/Referrals: Manuel Mahoney DO [Resident] - PCP,NO [Primary Care Provider] - Diet: Regular Addtl Attending Provider Instructions: You were admitted to the hospital for hallucinations. You were treated with vitamin supplementation and we started a new medication. With good sleep, hydration, and nutrition you were able to recover well with very little medical intervention. When you get home it will be very important to try to keep a good sleep schedule, as best you can. Also, building/rallying your support system will be important in these early days of your sobriety. A discharge summary will be sent to your primary care physician to ensure continuity of care. Please bring this discharge summary with you to your next office appointment so that your provider can review it at that time. Follow-up appointments: Make a follow-up appointment with your PCP within the next 3-4 weeks. It is very important that you follow up with them shortly after discharge from the hospital. Keep all your follow-up appointments as already scheduled. If you cannot make an appointment, notify your provider. Medications: Your medication list has been reviewed and reconciled upon discharge to ensure accuracy and continuity of care. An updated list of all your medications is included with your hospital discharge paperwork. Please review this list closely, and make note of any changes. We sent a new medication called naltrexone to your pharmacy. Take naltrexone (50mg) one tablet daily. If you have any issues filling these prescriptions, please call [phone] and ask to leave a message for Dr. Manuel Mahoney. Take your medications as instructed; do not skip a dose of your medicines. Make sure all of your doctors know every medicine you are taking (including wgxw-uus-[id number] medicines, vitamins, and supplements). Call your primary care provider before taking any new medicines (including yzzc-ihl-zckelmv medicines, vitamins, and supplements), because some of these may interact with your current medications, or may make your symptoms worse. Tell your primary care provider if you cannot afford your medications. CONTACT YOUR PRIMARY CARE PROVIDER if you experience any of the following: Any changes in thoughts Concerns from those around you Difficulty following your treatment plan, or difficulty taking medications CALL 551 OR GO TO THE EMERGENCY DEPARTMENT if you experience any of the following: Sudden, severe abdominal pain or nausea/vomiting Severe chest pain, or chest pain that radiates (moves) to your jaw or arm Sudden, severe shortness of breath or difficulty breathing Thank you for allowing us to participate in your care. Pending Studies at Discharge: No Stand-Alone Forms: My [facility] Medications and DC Order Prescriptions: New naltrexone 50 mg tablet 50 mg PO DAILY Qty: 30 0RF Continued thiamine HCl (vitamin B1) 100 mg tablet 100 mg PO DAILY Rx Instructions: ORDERED 08/12/24 TO TAKEF FOR 7 DAYS folic acid 1 mg tablet 1 mg PO DAILY Rx Instructions: ORDERED 08/12/24 TAKE FOR 7 DAYS multivitamin Tablet 1 tab PO DAILY cyanocobalamin (vitamin B-12) [Vitamin B-12] 1,000 mcg Tablet 1,000 mcg PO DAILY vitamin B6-vitamin E-magnesium Tablet 1 tab PO DAILY omega 9-vvq-gdq-fish oil [Fish Oil] 1,000 (120-180) mg Capsule 1 cap PO DAILY Discharge Orders: Discharge Order (Routine); Ordered 08/17/24 Ordered By: Manuel Mahoney Admission Data Admit Date/Time: 08/15/24 03:21 Attending Provider: Sharif Osuna Admit Provider: Belkis Shaikh Primary Care Provider: PCP,NO Other Providers: Belkis Shaikh; Pam Jaime; Mic Marcial; Lor Morillo; Kymberly Tristan; Garcia Guthrie; Altagracia Sanford Supervising Physician Co-Signing Physician Notes Attending attestation Pt seen and examined in concert with Dr. Mahoney. In agreement with the documented findings as noted in the resident documentation with any exceptions or additions as noted here. No acute complaints at time of examination. Does remain somewhat tangential of speech during conversation. On examination, S1/S2 nl RRR no MCG. CTAB. Abd NT/ND BS+ve. CNII-XII grossly intact as tested. Alcohol use disorder s/p alcohol withdrawal with hallucinations - will discharge on naltrexone for outpatient follow up to establish primary care w/ Dr. aMhoney at [facility]. Insomnia, chronic - likely related to above as was normalized with treatment of above on inpatient service. Else see resident documentation as noted. Total attending physician time spent with this patient's care on the day of discharge: 35 minutes. Resident Activity Tracking Resident Involvement: Resident Care Provided Care Provided: Adult Hospital Medicine
[2024-08-19 06:22] LABS: Babesia microti DNA Not Detected (Not Detected)
== END 2024-08-17 15:39 | disposition home or self-care (01) | DRG 897 ==
LOC: ED 00:09 → SUATTDRO 03:21 → EDINP 03:21 → 2N 04:06